=== PATIENT | male | born 1945 | race Caucasian/White ===

== ENCOUNTER 2016-11-28 18:23 | Emergency (ER) | payer MEDICARE, OTHER | END 2016-11-28 19:42 | disposition left against medical advice (07) | LOC: ER1 18:23 | DX: I97.620 Postprocedural hemorrhage of a circulatory system organ or structure following other procedure (principal); I10 Essential (primary) hypertension; E11.9 Type 2 diabetes mellitus without complications; E78.5 Hyperlipidemia, unspecified; Y84.8 Other medical procedures as the cause of abnormal reaction of the patient, or of later complication, without mention of misadventure at the time of the procedure; Z23 Encounter for immunization; Z85.828 Personal history of other malignant neoplasm of skin | CPT/HCPCS: 90471; 90715; 99283 ==